=== PATIENT | male | born 1985 | race American Indian/Alaskan Native ===

== ENCOUNTER 2022-03-12 17:48 | Emergency (ER) | payer OTHER ==
[2022-03-12 18:22] VITALS: BP 142/55
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
== END 2022-03-12 21:08 | disposition home or self-care (01) ==
LOC: ED 17:48
DX: S20.219A Contusion of unspecified front wall of thorax, initial encounter (principal); S29.011A Strain of muscle and tendon of front wall of thorax, initial encounter; M62.830 Muscle spasm of back; V89.2XXA Person injured in unspecified motor-vehicle accident, traffic, initial encounter; Y93.89 Activity, other specified; Y92.89 Other specified places as the place of occurrence of the external cause; Y99.8 Other external cause status
CPT/HCPCS: 71046; 72100; 99283